=== PATIENT | male | born 1955 | race African-American/Black ===

== ENCOUNTER 2019-12-30 10:17 | Emergency (ER) | payer OTHER ==
--- OUTSIDE RECORDS SUMMARY | 2019-12-30 10:18 | XMS REPORT ---
:1955 [facility] Address [address] [place] [address] Care Team Providers Name Role Phone SEAN BOWERS Primary Care Provider Unavailable SEAN BOWERS Unavailable Unavailable Problems This patient has no known problems. Allergies, Adverse Reactions, Alerts This patient has no known allergies or adverse reactions. Medications This patient has no known medications. Results Test Description Test Time Test Comments Text Results Atomic Results Result Comments Partial Thromboplastin Time 2017-06-06 07:58:00 Test Item Value Reference Range Comments aPTT (test code=PTT) 32.90 seconds 24.39-37.25 Prothrombin [id number] 07:58:00 Test Item Value Reference Range Comments PT (test code=PT) 11.10 seconds 9.78-13.35 INR (test code=INR) 0.97 Ratio 0.6-1.2 Basic Metabolic [id number] 07:53:00 Test Item Value Reference Range Comments Sodium (test code=NA) 138 mmol/L 135-145 Potassium (test code=K) 4.2 mmol/L 3.5-5.1 Hemolyzed Chloride (test code=CL) 98 mmol/L 98-105 Carbon Dioxide (test 25 mmol/L 22-29 code=CO2) Glucose (test code=GLU) 84 mg/dL 70-115 Blood Urea Nitrogen 13 mg/dL 8-23 (test code=BUN) Creatinine (test 1.1 mg/dL 0.7-1.2 code=CREAT) Calcium (test code=CA) 9.8 mg/dL 8.3-10.5 BUN/Creatinine Ratio 11.8 (test code=BCRATIO) Anion Gap (test 15 mmol/L 7-16 code=AGAP) Estimated GFR (test >60 mL/min/1.73m2 eGFR (estimated Glomerular code=GFR) Filtration Rate) is an estimated value,calculated from the patient's serum creatinine using the MDRD equation.It is NOT the patient's actual GFR. The eGFR provides a more clinicallyuseful measure of kidney disease than serum creatinine alone.This calculation takes sex and race into account, if the informationis provided. If the race is not provided, and the patient isAfrican-Citizen Of [place], multiply by 1.212. If sex is not provided, and thepatient is female, multiply by 0.742. Results for patients <18 years ofage have not been validated by the MDRD study and should be interpretedwith caution.eGFR Result Interpretation:eGFR > or=60 is in the Normal RangeeGFR < 60 may mean kidney diseaseeGFR < 15 may mean kidney failureRanges recommended by the National Kidney Foundation,http://nkdep.nih .gov CBC with [id number] 07:45:00 Test Item Value Reference Range Comments WBC (test code=WBC) 4.7 K/cumm 4.4-10.5 RBC (test code=RBC) 4.73 M/cumm 4.10-5.70 Hemoglobin (test code=HGB) 15.6 gm/dL 13.4-17.4 Hematocrit (test code=HCT) 47.9 % 38.7-52.0 MCV (test code=MCV) 101.2 fL 80-100 MCH (test code=MCH) 33.0 pg 27.0-32.5 MCHC (test code=MCHC) 32.6 g/dL 32.0-37.5 RDW (test code=RDW) 14.0 % 11.5-14.5 Platelet Count (test code=PLTCT) 251 K/cumm 140-440 MPV (test code=MPV) 8.8 fL Diff Method (test code=DIFFM) Auto Neutrophil (test code=NEUT) 55.0 % 36-70 Lymphocyte (test code=LYMPH) 31.6 % 12-44 Monocyte (test code=MONO) 7.1 % 0-11 Eosinophil (test code=EOS) 5.9 % 0-7 Basophil (test code=BASO) 0.5 % 0-2 Neutro Abs (test code=ANEUT) 2.6 K/cumm 1.6-7.4 Lymph Abs (test code=ALYMPH) 1.5 K/cumm 0.5-4.6 Glenn Abs (test code=AMONO) 0.3 K/cumm 0.0-1.2 Eos Abs (test code=AEOS) 0.27 K/cumm 0.00-0.74 Baso Abs (test code=ABASO) 0.0 K/cumm 0.00-0.21
--- NOTE | 2019-12-30 11:28 | EDPHYS ---
Physician Documentation [facility] Name: Nelson Coronado Age: 64 yrs Sex: Male : 1955 Arrival Date: 12/30/2019 Time: 10:18 Bed 28 Private MD: Stuart Mason E ED Physician Albert Flores HPI: 12/30 11:24 This 64 yrs old Black Male presents to ER via Ambulatory with complaints of Back Pain. kb 11:24 The patient presents with pain that is acute, with no known mechanism of injury. The kb symptoms are located in the right low back. Onset: The symptoms/episode began/occurred 5 day(s) ago. The pain radiates to the right leg. Associated signs and symptoms: The patient has no apparent associated signs or symptoms. The problem was sustained working on a trailer. Modifying factors: The patient symptoms are alleviated by nothing, the patient symptoms are aggravated by nothing. Severity of symptoms: At their worst the symptoms were moderate, in the emergency department the symptoms are unchanged. The patient has experienced a previous episode. The patient has not recently seen a physician. Pt reports right low back pain that radiates down right leg. States he had the same thing happen to the left side in the past and had to have surgery because of sciatica. Denies injury or trauma. Historical: - Allergies: 10:26 No Known Allergies; ss - PMHx: 10:26 allergies; chronic hip pain; heart disease; High Cholesterol; Hypertension; Myocardial ss infarction; - Immunization history:: Adult Immunizations up to date. - Coronavirus screen:: The patient has NOT traveled to [place], [place], or [place] in the past 14 days. Proceed with normal triage process as indicated. - Social history:: Smoking status: Patient reports the use of cigarette tobacco products, smokes one-half pack cigarettes per day. - Ebola Screening: : Patient denies exposure to infectious person Patient denies travel to an Ebola-affected area in the 21 days before illness onset. ROS: 11:24 Constitutional: Negative for fever, chills, and weight loss, Neck: Negative for injury, kb pain, and swelling, Cardiovascular: Negative for chest pain, palpitations, and edema, Respiratory: Negative for shortness of breath, cough, wheezing, and pleuritic chest pain, Abdomen/GI: Negative for abdominal pain, nausea, vomiting, diarrhea, and constipation, : Negative for injury, bleeding, discharge, and swelling, MS/Extremity: Negative for injury and deformity, Skin: Negative for injury, rash, and discoloration, Neuro: Negative for headache, weakness, numbness, tingling, and seizure. 11:24 Back: Positive for pain at rest, pain with movement, radiated pain, of the right low back. Exam: 11:24 Constitutional: This is a well developed, well nourished patient who is awake, alert, kb and in no acute distress. Head/Face: Normocephalic, atraumatic. ENT: Nares patent. No nasal discharge, no septal abnormalities noted. Tympanic membranes are normal and external auditory canals are clear. Oropharynx with no redness, swelling, or masses, exudates, or evidence of obstruction, uvula midline. Mucous membranes moist. Neck: Trachea midline, no thyromegaly or masses palpated, and no cervical lymphadenopathy. Supple, full range of motion without nuchal rigidity, or vertebral point tenderness. No Meningismus. Chest/axilla: Normal chest wall appearance and motion. Nontender with no deformity. No lesions are appreciated. Cardiovascular: Regular rate and rhythm with a normal S1 and S2. No gallops, murmurs, or rubs. Normal PMI, no JVD. No pulse deficits. Respiratory: Lungs have equal breath sounds bilaterally, clear to auscultation and percussion. No rales, rhonchi or wheezes noted. No increased work of breathing, no retractions or nasal flaring. Abdomen/GI: Soft, non-tender, with normal bowel sounds. No distension or tympany. No guarding or rebound. No evidence of tenderness throughout. Skin: Warm, dry with normal turgor. Normal color with no rashes, no lesions, and no evidence of cellulitis. MS/ Extremity: Pulses equal, no cyanosis. Neurovascular intact. Full, normal range of motion. Neuro: Awake and alert, GCS 15, oriented to person, place, time, and situation. Cranial nerves II-XII grossly intact. Motor strength 5/5 in all extremities. Sensory grossly intact. Cerebellar exam normal. Normal gait. 11:24 Back: pain, that is moderate, Straight leg raises: right lower extremity illicits pain, at 45 degrees. Vital Signs: 10:26 BP 124 / 90; Pulse 91; Resp 18; Temp 99.0(TE); Pulse Ox 99% on R/A; Weight 68.04 kg; ss Height 5 ft. 7 in. (170.18 cm); Pain 10/10; 10:26 Body Mass Index 23.49 (68.04 kg, 170.18 cm) ss MDM: 11:07 Patient medically screened. kb 11:24 Data reviewed: vital signs, nurses notes. Data interpreted: Pulse oximetry: on room air kb is 99 %. Interpretation: normal. 11:27 Counseling: I had a detailed discussion with the patient and/or guardian regarding: the kb historical points, exam findings, and any diagnostic results supporting the discharge/admit diagnosis, the need for outpatient follow up, a family practitioner, to return to the emergency department if symptoms worsen or persist or if there are any questions or concerns that arise at home. Administered Medications: 11:37 Drug: predniSONE 40 mg Route: PO; sv 11:37 Follow up: Response: Medication administered at discharge. sv Disposition: 15:51 Co-signature as Attending Physician, Albert Flores MD. rn Disposition: 12/30/19 11:27 Discharged to Home. Impression: Sciatica, right side. - Condition is Stable. - Discharge Instructions: Sciatica, Ikgp-kb-[id number], Back Exercises, [id number]. - Prescriptions for Prednisone 20 mg Oral Tablet - take 1 tablet by ORAL route once daily for 5 days; 5 tablet. Cyclobenzaprine 10 mg Oral Tablet - take 1 tablet by ORAL route every 8 hours As needed; 21 tablet. - Medication Reconciliation Form, Thank You Letter, Antibiotic Education, Prescription Opioid Use form. - Follow up: Emergency Department; When: As needed; Reason: Worsening of condition. Follow up: Private Physician; When: 2 - 3 days; Reason: Recheck today's complaints, Continuance of care, Re-evaluation by your physician. Signatures: Ammy Ying FNP-C FNP-Ckb Verde, Stephanie, RN RN sv Nieto, Roman, MD MD rn Smirch, Shelby, RN RN ss Corrections: (The following items were deleted from the chart) 11:37 11:27 12/30/2019 11:27 Discharged to Home. Impression: Sciatica, right side. Condition sv is Stable. Forms are Medication Reconciliation Form, Thank You Letter, Antibiotic Education, Prescription Opioid Use. Follow up: Emergency Department; When: As needed; Reason: Worsening of condition. Follow up: Private Physician; When: 2 - 3 days; Reason: Recheck today's complaints, Continuance of care, Re-evaluation by your physician. kb
--- NOTE | 2019-12-30 11:28 | ER ---
Nurse's Notes [facility] Name: Nelson Coronado Age: 64 yrs Sex: Male : 1955 Arrival Date: 12/30/2019 Time: 10:18 Bed 28 Private MD: Stuart Mason E Diagnosis: Sciatica, right side Presentation: 12/30 10:23 Presenting complaint: Patient states: Pain to R buttock that radiates down R leg x 4-5 ss days. Transition of care: patient was not received from another setting of care. Onset of symptoms was December 25, 2019. Risk Assessment: Do you want to hurt yourself or someone else? Patient reports no desire to harm self or others. Initial Sepsis Screen: Does the patient meet any 2 criteria? No. Patient's initial sepsis screen is negative. Does the patient have a suspected source of infection? No. Patient's initial sepsis screen is negative. Care prior to arrival: None. 10:23 Method Of Arrival: Ambulatory ss 10:23 Acuity: DIONNA 4 ss Historical: - Allergies: 10:26 No Known Allergies; ss - PMHx: 10:26 allergies; chronic hip pain; heart disease; High Cholesterol; Hypertension; Myocardial ss infarction; - Immunization history:: Adult Immunizations up to date. - Coronavirus screen:: The patient has NOT traveled to [place], [place], or [place] in the past 14 days. Proceed with normal triage process as indicated. - Social history:: Smoking status: Patient reports the use of cigarette tobacco products, smokes one-half pack cigarettes per day. - Ebola Screening: : Patient denies exposure to infectious person Patient denies travel to an Ebola-affected area in the 21 days before illness onset. Screenin:14 Abuse screen: Denies threats or abuse. Denies injuries from another. Nutritional sv screening: No deficits noted. Tuberculosis screening: No symptoms or risk factors identified. Fall Risk None identified. Assessment: 11:14 General: Appears in no apparent distress. uncomfortable, slender, Behavior is calm, sv cooperative, appropriate for age. Pain: Complains of pain in right lower back Pain radiates to right leg Pain currently is 10 out of 10 on a pain scale. Pain began 5 days ago Is continuous, Aggravated by increased activity, weight bearing. Neuro: Level of Consciousness is awake, alert, obeys commands, Oriented to person, place, time, situation, Moves all extremities. Full function Gait is steady, Speech is normal. Respiratory: Airway is patent Respiratory effort is even, unlabored, Respiratory pattern is regular, symmetrical. Derm: Skin is pink, warm \T\ dry. Musculoskeletal: Range of motion: intact in all extremities. Vital Signs: 10:26 BP 124 / 90; Pulse 91; Resp 18; Temp 99.0(TE); Pulse Ox 99% on R/A; Weight 68.04 kg; ss Height 5 ft. 7 in. (170.18 cm); Pain 10/10; 10:26 Body Mass Index 23.49 (68.04 kg, 170.18 cm) ss ED Course: 10:18 Patient arrived in ED. as 10:19 Stuart Mason MD is Private Physician. as 10:24 Triage completed. ss 10:26 Arm band placed on right wrist. ss 10:38 [facility]C [facility]. kb 10:38 Albert Flores MD is Attending Physician. kb 11:14 Patient has correct armband on for positive identification. Bed in low position. Call sv light in reach. Door closed. Head of bed elevated. 11:18 Alana Carvalho, RN is Primary Nurse. sv Administered Medications: 11:37 Drug: predniSONE 40 mg Route: PO; sv 11:37 Follow up: Response: Medication administered at discharge. sv Outcome: 11:27 Discharge ordered by . kb 11:37 Patient left the ED. sv Signatures: Ammy Ying FNP-C MOISTURE METER READER-Ckb Alana Carvalho, Archana Lomas RN, Shelby, RN RN
[2019-12-30] MEDS ORDERED: predniSONE 20 MG TAB ONE (11:37)
[2019-12-30 16:02] VITALS: BP 124/90; TEMP 99; O2SAT 99
== END 2019-12-30 11:37 | disposition home or self-care (01) ==
LOC: ER 10:17
DX: M54.31 Sciatica, right side (principal)
CPT/HCPCS: 99283; J7512

== ENCOUNTER 2020-12-12 06:45 | Day surgery (SDC) | payer OTHER ==
--- NOTE | 2020-12-08 14:33 | RAD REPORT ---
EXAM DESCRIPTION: RAD - Chest Pa And Lat (2 Views) - 12/08/2020 2:06 pm CLINICAL HISTORY: preop, pending cardiac catheterization COMPARISON: Two view chest October 2019 TECHNIQUE: Frontal and lateral views of the chest were obtained. FINDINGS: The lungs are clear. No acute lung parenchymal process. A small left base nodule October 2019 is probably a nipple shadow. This is not identified on the current study. Heart size is normal and central vasculature is within normal limits. No pleural effusion or pneumothorax seen. No acute bony finding noted. No aortic abnormality. IMPRESSION: No acute cardiopulmonary process. No suspicious change from comparison.
[2020-12-08 14:40] LABS: Absolute Lymphocytes (CBC) 1.8 K/uL (0.7-4.9); Basophils % 1.2 % (0-1.3); Lymphocytes % 29.7 % (15.3-44.8); MPV 8.5 fL (7.6-11.3); RBC Red Blood Cell Count 4.55 M/uL (4.33-5.43)
[2020-12-08 14:57] LABS: Protime INR 1.03
[2020-12-08 15:01] LABS: Potassium 3.6 mmol/L (3.5-5.1)
--- NOTE | 2020-12-08 22:30 | EKG ---
Test Date: 2020-12-08 Test Time: 13:36:03 Residential Interior Designer: KIA MEASUREMENT RESULTS: Intervals: Rate: 63 CA: 134 QRSD: 82 QT: 406 QTc: 415 Antonito: P: 70 CA: 134 QRS: 37 T: 46 INTERPRETIVE STATEMENTS: Normal sinus rhythm with sinus arrhythmia Normal ECG Compared to ECG 11/18/2017 20:15:23 No significant changes Electronically Signed On 12-08-20 22:29:24 HELICOPTER OFFICER by Noe Hernandez
[2020-12-12] MEDS ORDERED: HEPA 1000U/500MLS 2,000 UNIT/1,000 ML BAG IV ONE (06:58)
[2020-12-12] MEDS ORDERED: LIDOCAINE 1% 20 ML MDV ONE (06:58)
[2020-12-12] MEDS ORDERED: NA CHLORIDE 0.9% 500 ML ONE (07:08)
[2020-12-12] MEDS ORDERED: HEPARIN 5000 UNIT/ML 1 ML VIAL ONE (07:31)
[2020-12-12] MEDS ORDERED: MIDAZOLAM HCL 2 MG/2 ML INJ ONE ×2 (07:32→07:57)
[2020-12-12] MEDS ORDERED: FENTANYL CITR 100 MCG/2 ML ONE (07:32)
--- OUTSIDE RECORDS SUMMARY | 2020-12-12 08:07 | XMS REPORT | Continuity of Care Document ---
:1955 Author Organization [facility] t Address [address] [place] [address] Care Team Providers Name Role Phone ROBINSON Primary Care Physician Unavailable ROBINSON Attending Clinician Unavailable ROBINSON Admitting Clinician Unavailable Problems This patient has no known problems. Allergies, Adverse Reactions, Alerts This patient has no known allergies or adverse reactions. Medications This patient has no known medications. Procedures This patient has no known procedures. Results Test Description Test Time Test Comments Results Result Comments Source Partial Thromboplastin Time 2017-06-06 07:58:00 Test Item Value Reference Range Interpretation Comme nts aPTT (test code = PTT) 32.90 seconds 24.39-37.25 N Prothrombin [id number] 07:58:00 Test Item Value Reference Range Interpretation Comments PT (test code = PT) 11.10 seconds 9.78-13.35 N INR (test code = INR) 0.97 Ratio 0.6-1.2 N Basic Metabolic [id number] 07:53:00 Test Item Value Reference Range Interpretation Comments Sodium (test code = 138 mmol/L 135-145 N NA) Potassium (test 4.2 mmol/L 3.5-5.1 N Hemolyzed code = K) Chloride (test code 98 mmol/L 98-105 N = CL) Carbon Dioxide 25 mmol/L 22-29 N (test code = CO2) Glucose (test code 84 mg/dL 70-115 N = GLU) Blood Urea Nitrogen 13 mg/dL 8-23 N (test code = BUN) Creatinine (test 1.1 mg/dL 0.7-1.2 N code = CREAT) Calcium (test code 9.8 mg/dL 8.3-10.5 N = CA) BUN/Creatinine 11.8 Ratio (test code = BCRATIO) Anion Gap (test 15 mmol/L 7-16 N code = AGAP) Estimated GFR (test >60 eGFR (es timated code = GFR) mL/min/1.73m2 Glomerular Paulo tration Rate) is an est imated value,calculate d from the patient's s [place] creatinine usin g the MDRD equation.I t is NOT the patient 's actual GFR. The eGFR provides a more clinicallyusefu l measure of kidn ey disease than se rum creatinine alone.This calculation amy es sex and race into account, if the informationis provided. If th e race is not provided , and the patient isAfrican-Ameri can, multiply by 1.2 12. If sex is not prov ided, and thepatient is female, multipl y by 0.742. Results for patients <18 ye ars ofage have not been validated by th e MDRD study and shoul d be interpretedwith caution.eGFR Re sult Interpretation: eGFR > or = 60 is in t he Normal RangeeGF R < 60 may mean kidney diseaseeGFR < 1 5 may mean kidney failureRange s recommended by the National Kidney Foundation,http ://nkd ep.nih.gov CBC with [id number] 07:45:00 Test Item Value Reference Range Interpretation Comments WBC (test code = WBC) 4.7 K/cumm 4.4-10.5 N RBC (test code = RBC) 4.73 M/cumm 4.10-5.70 N Hemoglobin (test code = HGB) 15.6 gm/dL 13.4-17.4 N Hematocrit (test code = HCT) 47.9 % 38.7-52.0 N MCV (test code = MCV) 101.2 fL 80-100 H MCH (test code = MCH) 33.0 pg 27.0-32.5 H MCHC (test code = MCHC) 32.6 g/dL 32.0-37.5 N RDW (test code = RDW) 14.0 % 11.5-14.5 N Platelet Count (test code = 251 K/cumm 140-440 N PLTCT) MPV (test code = MPV) 8.8 fL Diff Method (test code = DIFFM) Auto Neutrophil (test code = NEUT) 55.0 % 36-70 N Lymphocyte (test code = LYMPH) 31.6 % 12-44 N Monocyte (test code = MONO) 7.1 % 0-11 N Eosinophil (test code = EOS) 5.9 % 0-7 N Basophil (test code = BASO) 0.5 % 0-2 N Neutro Abs (test code = ANEUT) 2.6 K/cumm 1.6-7.4 N Lymph Abs (test code = ALYMPH) 1.5 K/cumm 0.5-4.6 N Dewitt Abs (test code = AMONO) 0.3 K/cumm 0.0-1.2 N Eos Abs (test code = AEOS) 0.27 K/cumm 0.00-0.74 N Baso Abs (test code = ABASO) 0.0 K/cumm 0.00-0.21 N
--- NOTE | 2020-12-12 08:33 | OP ---
Surgeon: Noe Hernandez MD Predictive Maintenance Technician: Lakeshia Shah. Mr. Nelson Coronado admitted to my service as an outpatient to the analytical lab analyst on 12/12/2020. Reason For Admission: An outpatient abdominal angiogram with runoff. Indication: Peripheral arterial disease, claudication and abnormal arterial Doppler. Description Of Procedure: Mr. Coronado was prepped and draped in the routine sterile fashion. He was given Versed and fentanyl for sedation. A 6-Sami sheath was introduced in the left common femoral artery successfully using a Seldinger technique with 10 cc of xylocaine. The pigtail catheter was a dvanced just above the renals without any difficulties. Abdominal angiography was done with runoff t hat showed normal aorta, normal iliacs, external and internal. The common femoral artery was normal. He had 100% occlusion of his bilateral SFA ostium on the left and on the right mid SFA. Both of th em, however, reconstituted at the popliteal with some diffuse plaquing below the knee. Complications: There were no complications. Estimated Blood Loss: 5 mL. Anesthesia: Total conscious sedation was 45 minutes. Postoperative Diagnosis: Severe peripheral arterial disease. Plan: For an outpatient bilateral femoral-popliteal in [place]. I will make arrangements for that. For now, the patient had an Angio- Seal used to close the left groin successfully. He will go home after 2 hours of bedrest. He will h ave a CD with him. ANGEL/ANA Voice ID: [id number] Report ID: [id number]
[2020-12-12 08:44] VITALS: TEMP 97.5
[2020-12-12 10:11] VITALS: BP 127/85; O2SAT 98
== END 2020-12-12 10:07 | disposition home or self-care (01) ==
LOC: CCL 06:45
DX: I70.213 Atherosclerosis of native arteries of extremities with intermittent claudication, bilateral legs (principal); I70.92 Chronic total occlusion of artery of the extremities; I25.10 Atherosclerotic heart disease of native coronary artery without angina pectoris; I10 Essential (primary) hypertension; R09.89 Other specified symptoms and signs involving the circulatory and respiratory systems; E78.2 Mixed hyperlipidemia; F17.210 Nicotine dependence, cigarettes, uncomplicated; Z95.5 Presence of coronary angioplasty implant and graft; Z20.822 Contact with and (suspected) exposure to COVID-19; Z82.49 Family history of ischemic heart disease and other diseases of the circulatory system
CPT/HCPCS: 93005; 85025; 80048; 36415; 85610; 85730; 71046; 36200; 75630; U0002; C1893; C1760; J2250 ×2; J3010; J7040; J1644

== ENCOUNTER 2022-03-22 10:28 | Emergency (ER) | payer OTHER ==
--- OUTSIDE RECORDS SUMMARY | 2022-03-22 10:31 | XMS REPORT | Continuity of Care Document ---
:1955 Author Organization [facility] t Address [address] [place] [place] [address] Care Team Providers Name Role Phone ROBINSON Primary Care Physician Unavailable Ines CAMERON S Attending Clinician Bety PEGUERO L Attending Clinician JULEE Attending Clinician Unavailable ROBINSON Attending Clinician Unavailable JULEE Admitting Clinician Unavailable ROBINSON Admitting Clinician Unavailable Payers Payer Name Policy Type Policy Number Effective Date Expiration Date S ource Problems Condition Condition Condition Status Onset Resolution Last Treating Co mments Source Name Details Category Date Date Treatment Clinician Date No known No known Disease Unive rs active active ity of problems problems [facility] Allergies, Adverse Reactions, Alerts Allergy Allergy Status Severity Reaction(s) Onset Inactive Treating Comm ents Source Name Type Date Date Clinician [place] Active Itching Univer s ty to 3-24 ity of adverse 00:00: [place] reaction 00 Medical s Branch Social History Social Habit Start Date Stop Date Quantity Comments Source Exposure to Not sure [facility] SARS-CoV-2 (event) Medica l Branch Tobacco use and 2021-11-30 2021-11-30 Never used [facility] exposure 00:00:00 00:00:00 Medical Branch Sex [birth year] [facility] 00:00:00 00:00:00 Medical [place] Smoking Status Start Date Stop Date Source Current every day smoker 2021-11-30 00:00:00 Uni versity [facility] Medications Ordered Filled Start Stop Current Ordering Indication Dosage Frequency Signature Comments Components Source Medication Medication Date Date Medication? Clinician (SIG) Name Name METOPROLOL Yes 50mg Take 50 mg U nivers SUCCINATE 1-10 by mouth. ity o f ORAL 15:26: [address] aspirin 81 2021-0 Yes 81mg Take 81 mg U nivers mg chewable 1-10 by mouth. ity of tablet 15:26: [address] celecoxib 2021-0 Yes 200mg Take 200 Uni vers 200 mg 1-10 mg by ity of capsule 15:26: mouth. [address] fluticasone Yes 2{spray Use 2 Un riley propionate 1-10 } Sprays in ity of 50 15:26: each [place] mcg/actuati 03 nostril. Medi sherwin on nasal Branch spray lisinopriL Yes 10mg Take 10 mg U nivers 10 mg 1-10 by mouth. ity of tablet 15:26: [address] nitroglycer Yes .4mg Place 0.4 U nivers in 0.4 mg 1-10 mg under ity of sublingual 15:: the [address] [facility] pravastatin Yes 40mg Take 40 mg Univers 40 mg 1-10 by mouth. ity of tablet 15:26: [address] simvastatin Yes 20mg Take 20 mg Univers 20 mg 1-10 by mouth. ity of tablet 15:26: [address] ticagrelor Yes 90mg Take 90 mg U nivers 90 mg 1-10 by mouth. ity of tablet 15:26: [address] METOPROLOL Yes 50mg Take 50 mg U nivers SUCCINATE 1-10 by mouth. ity o f ORAL 15:26: [address] aspirin 81 0 Yes 81mg Take 81 mg U nivers mg chewable 1-10 by mouth. ity of tablet 15:26: [address] celecoxib 0 Yes 200mg Take 200 Uni vers 200 mg 1-10 mg by ity of capsule 15:26: mouth. [address] fluticasone 0 Yes 2{spray Use 2 Un riley propionate 1-10 } Sprays in ity of 50 15:26: each [place] mcg/actuati 03 nostril. Medi sherwin on nasal Branch spray lisinopriL Yes 10mg Take 10 mg U nivers 10 mg 1-10 by mouth. ity of tablet 15:26: [place] Medical [facility] nitroglycer Yes .4mg Place 0.4 U nivers in 0.4 mg 1-10 mg under ity of sublingual 15:: the [facility] 03 tongue. Medical Branch pravastatin Yes 40mg Take 40 mg Univers 40 mg 1-10 by mouth. ity of tablet 15:: [place] [address] Medical Branch simvastatin Yes 20mg Take 20 mg Univers 20 mg 1-10 by mouth. ity of tablet 15:26: [place] [facility] ticagrelor Yes 90mg Take 90 mg U nivers 90 mg 1-10 by mouth. ity of tablet 15:: [place] [facility] acetaminoph Yes 4647 2{tbl} Take 2 Un riley en-codeine 1-10 tablets by ity of (TYLENOL-CO 00:00: mouth [place] DEINE #3) 00 every 6 Medical 300-30 mg (six) Branch tablet hours as needed for Pain (scale 4-6) or Pain (scale 7-10). Indication s: acute pain acetaminoph Yes 4647 2{tbl} Take 2 Un riley en-codeine 1-10 tablets by ity of (TYLENOL-CO 00:00: mouth [place] DEINE #3) 00 every 6 Medical 300-30 mg (six) Branch tablet hours as needed for Pain (scale 4-6) or Pain (scale 7-10). Indication s: acute pain albuterol 2020-12 Yes Univers 90 1-02 ity of mcg/actuati 00:00: [place] on inhaler 00 Medical Branch gabapentin 2020-12 Yes Univers 300 mg 1-02 ity of capsule 00:00: Medical Branch albuterol 2020-12 Yes Univers 90 1-02 ity of mcg/actuati 00:00: on inhaler Medical Branch gabapentin 2020-12 Yes Univers 300 mg 1-02 ity of capsule 00:00: [place] [facility] Immunizations Ordered Filled Immunization Date Status Comments Sourc e Immunization Name Name SARS-COV-2 COVID-19 2021-10-15 Completed Unive rsity of MODERNA BOOSTER 00:00:00 [facility] ical VACCINE Branch SARS-COV-2 COVID-19 2021-10-15 Completed Unive rsity of MODERNA BOOSTER 00:00:00 [facility] ical VACCINE Branch SARS-COV-2 COVID-19 2021 Completed Unive rsity of MODERNA VACCINE 00:00:00 [facility] SARS-COV-2 COVID-19 2021 Completed Unive rsity of MODERNA VACCINE 00:00:00 [facility] SARS-COV-2 COVID-19 2021-01-07 Completed Unive rsity of MODERNA VACCINE 00:00:00 [facility] SARS-COV-2 COVID-19 2021-01-07 Completed Unive rsity of MODERNA VACCINE 00:00:00 [facility] Vital Signs Vital Name Observation Time Observation Value Comments Source Systolic blood 2022-02-21 16:31:00 168 mm[Hg] Univer sity of [facility] Diastolic blood 2022-02-21 16:31:00 94 mm[Hg] Unive rsity of [facility] Body height 2022-02-21 16:24:00 170.2 cm [facility] Body weight 2022-02-21 16:24:00 66.225 kg [facility] BMI 2022-02-21 16:24:00 22.87 kg/m2 [facility] Oxygen saturation 2022-02-21 16:24:00 99 /min Uni [facility] Arterial blood [facility] by Pulse oximetry Heart rate 2022-02-21 16:24:00 86 /min [facility] Procedures This patient has no known procedures. Encounters Start End Encounter Admission Attending Care Care Encounter Source Date/Time Date/Time Type Type Clinicians Facility Department ID 2022-02-21 2022-02-21 Office Jordin Chacon [facility] [id number] [facility] 11:15:00 11:30:00 Visit AlbertCaipiaobao Enrique [facility] [id number] ittal jean ELMER [id number] Nayan as JONNY?BLEA [id number] Co claudia [address] MEDICAL OFFICE BUILDING 2021-03-27 2021-03-27 [facility] [id number] [place] 00:00:00 00:00:00 [place] 671 Met [facility] 2021-03-13 2021-03-13 [facility] [id number] [place] 00:00:00 00:00:00 [place] 683 Met [facility] 2021-03-06 2021-03-06 [facility] [id number] [place] 00:00:00 00:00:00 [place] 295 Met [facility] 2021-02-20 2021-02-20 [facility] [id number] [place] 00:00:00 00:00:00 [place] 333 Met [facility] Results Test Description Test Time Test Comments Results Result Comments Source Partial Thromboplastin Time 2017-06-06 07:58:00 Test Item Value Reference Range Interpretation Comme nts aPTT (test code = PTT) 32.90 seconds 24.39-37.25 N Prothrombin [id number] 07:58:00 Test Item Value Reference Range Interpretation Comments PT (test code = PT) 11.10 seconds 9.78-13.35 N INR (test code = INR) 0.97 Ratio 0.6-1.2 N Basic Metabolic [id number] 07:53:00 Test Item Value Reference Range Interpretation [...] National [employer] Foundation,http :[email or web address] ep.nih.gov CBC with [id number] 07:45:00 Test Item Value Reference Range Interpretation [...] code = ALYMPH) 1.5 K/cumm 0.5-4.6 N Barron Abs (test code = AMONO) 0.3 K/cumm 0.0-1.2 N Eos Abs (test code = AEOS) 0.27 K/cumm 0.00-0.74 N Baso Abs (test code = ABASO) 0.0 K/cumm 0.00-0.21 N
[2022-03-22] MEDS ORDERED: LEVALBUTEROL 1.25 MG/3 ML NEB ONE (11:03)
[2022-03-22 12:25] LABS: SARS-COV-2 RT PCR NEGATIVE (NEGATIVE)
--- NOTE | 2022-03-22 12:54 | ER ---
Nurse's Notes [facility] Name: Nelson Coronado Age: 67 yrs Sex: Male : 1955 Arrival Date: 03/22/2022 Time: 10:31 Bed 18 Private MD: Stuart Mason E Diagnosis: Wheezing;Acute pharyngitis, unspecified Presentation: 03/22 10:37 Chief complaint: Patient states: cough and congestion in chest since last week, denies iw SOB, no fever. Coronavirus screen: Client presents with at least one sign or symptom that may indicate coronavirus-19. Ebola Screen: Patient negative for fever greater than or equal to 101.5 degrees Fahrenheit, and additional compatible Ebola Virus Disease symptoms Patient denies exposure to infectious person. Patient denies travel to an Ebola-affected area in the 21 days before illness onset. No symptoms or risks identified at this time. Initial Sepsis Screen: Does the patient meet any 2 criteria? No. Patient's initial sepsis screen is negative. Does the patient have a suspected source of infection? No. Patient's initial sepsis screen is negative. Risk Assessment: Do you want to hurt yourself or someone else? Patient reports no desire to harm self or others. Onset of symptoms was March 15, 2022. 10:37 Method Of Arrival: Ambulatory iw 10:37 Acuity: DIONNA 4 iw Historical: - Allergies: 10:38 Tylenol-Codeine; iw - Home Meds: 10:38 benzonatate 100 mg Oral cap 1 cap twice a day [Active]; BRILINTA 90 mg Oral tab 1 tab 2 iw times per day [Active]; clopidogrel 75 mg Oral tab 1 tab once daily [Active]; Flonase 50 mcg/actuation Nasal spsn 1 spray 2 times per day [Active]; Pravachol 40 mg Oral tab 1 tab nightly [Active]; ProAir HFA 90 mcg/actuation inhalation HFAA 1 puff every 4-6 hours [Active]; - PMHx: 10:38 allergies; chronic hip pain; heart disease; High Cholesterol; Hypertension; Myocardial iw infarction; - Immunization history:: Adult Immunizations unknown. - Social history:: Smoking status: unknown. Screenin:44 Abuse screen: Denies threats or abuse. Nutritional screening: No deficits noted. jd3 Tuberculosis screening: No symptoms or risk factors identified. Fall Risk Ambulatory Aid- None/Bed Rest/Nurse Assist (0 pts). Gait- Normal/Bed Rest/Wheelchair (0 pts) Mental Status- Oriented to own ability (0 pts). Total Davis Fall Scale indicates No Risk (0-24 pts). Assessment: 10:40 General: Appears in no apparent distress. comfortable, Behavior is calm, cooperative, jd3 appropriate for age. Pain: Complains of pain in throat Quality of pain is described as aching. Neuro: Level of Consciousness is awake, alert, obeys commands, Oriented to person, place, time, situation. Cardiovascular: Denies chest pain, Capillary refill < 3 seconds Patient's skin is warm and dry. Respiratory: Reports cough that is non-productive, dry, persistent Airway is patent Respiratory effort is even, unlabored, Respiratory pattern is regular, symmetrical, Breath sounds are clear bilaterally. GI: No signs and/or symptoms were reported involving the gastrointestinal system. : No signs and/or symptoms were reported regarding the genitourinary system. EENT: No signs and/or symptoms were reported regarding the EENT system. Derm: Skin is intact, Skin is dry, Skin is normal, Skin temperature is warm. Musculoskeletal: Circulation, motion, and sensation intact. Range of motion: intact in all extremities. 11:42 Reassessment: Patient appears in no apparent distress at this time. No changes from jd3 previously documented assessment. Patient and/or family updated on plan of care and expected duration. Pain level reassessed. Patient is alert, oriented x 3, equal unlabored respirations, skin warm/dry/pink. 12:48 Reassessment: Patient appears in no apparent distress at this time. Patient and/or jd3 family updated on plan of care and expected duration. Pain level reassessed. Patient is alert, oriented x 3, equal unlabored respirations, skin warm/dry/pink. Vital Signs: 10:37 BP 121 / 91; Pulse 87; Resp 16; Temp 98.7; Pulse Ox 98% on R/A; Weight 63.5 kg; Height iw 5 ft. 7 in. (170.18 cm); 12:48 Pulse 86; Resp 16 S; Pulse Ox 98% on R/A; jd3 10:37 Body Mass Index 21.93 (63.50 kg, 170.18 cm) iw ED Course: 10:31 Patient arrived in ED. ds1 10:31 Stuart Mason MD is Private Physician. ds1 10:38 Triage completed. iw 10:39 Chencho Costello PA is PHCP. [facility] 10:39 Pedro Saavedra MD is Attending Physician. jmm 10:39 Arm band placed on. iw 10:42 David Loredo, RN is Primary Nurse. jd3 11:44 Patient has correct armband on for positive identification. Bed in low position. Call j light in reach. Side rails up X 1. Adult w/ patient. Pulse ox on. NIBP on. 12:53 Stuart Mason MD is Referral Physician. [facility] 13:00 No provider procedures requiring assistance completed. Patient did not have IV access jd3 during this emergency room visit. Administered Medications: 11:09 Drug: Xopenex (levalbuterol) (3) 1.25 mg Route: Inhalation; jd3 12:00 Follow up: Response: No adverse reaction j Outcome: 12:53 Discharge ordered by MD. [facility] 13:00 Discharged to home ambulatory, with family. jd3 13:00 Condition: stable 13:00 Discharge instructions given to patient, family, Instructed on discharge instructions, follow up and referral plans. medication usage, Demonstrated understanding of instructions, follow-up care, medications, Prescriptions given X 3. 13:01 Patient left the ED. j Signatures: Chencho Costello PA PA Dinora Guillen ds1 Mariana Hubbard RN RN David Loredo, JESSICA RN jd3 Corrections: (The following items were deleted from the chart) 10:39 10:38 Home Meds: Tylenol-Codeine #4 300-60 mg Oral tab 1 tab every 4 hours; PRN; [facility]
--- NOTE | 2022-03-22 12:54 | EDPHYS ---
Physician Documentation [facility] Name: Nelson Coronado Age: 67 yrs Sex: Male : 1955 Arrival Date: 03/22/2022 Time: 10:31 Bed 18 Private MD: Stuart Mason E ED Physician Pedro Saavedra HPI: 03/22 10:40 This 67 yrs old Black Male presents to ER via Ambulatory with complaints of Cough, jmm Congestion. 10:40 Onset: The symptoms/episode began/occurred acutely, just prior to arrival. Modifying jmm factors: The symptoms are alleviated by nothing, the symptoms are aggravated by nothing. This is a 67 year old male with a history of htn, hlp that presents to the ED with complaints of cough, congestion, wheezing. Denies fever, vomiting. . Historical: - Allergies: 10:38 Tylenol-Codeine; iw - Home Meds: 10:38 benzonatate 100 mg Oral cap 1 cap twice a day [Active]; BRILINTA 90 mg Oral tab 1 tab 2 iw times per day [Active]; clopidogrel 75 mg Oral tab 1 tab once daily [Active]; Flonase 50 mcg/actuation Nasal spsn 1 spray 2 times per day [Active]; Pravachol 40 mg Oral tab 1 tab nightly [Active]; ProAir HFA 90 mcg/actuation inhalation HFAA 1 puff every 4-6 hours [Active]; - PMHx: 10:38 allergies; chronic hip pain; heart disease; High Cholesterol; Hypertension; Myocardial iw infarction; - Immunization history:: Adult Immunizations unknown. - Social history:: Smoking status: unknown. ROS: 10:40 Constitutional: Negative for fever, chills, and weight loss, Cardiovascular: Negative jmm for chest pain, palpitations, and edema. 10:40 Respiratory: Positive for cough, shortness of breath, wheezing. 10:40 Abdomen/GI: Negative for abdominal pain, nausea and vomiting, diarrhea. 10:40 All other systems are negative. Exam: 10:40 Constitutional: This is a well developed, well nourished patient who is awake, alert, jmm and in no acute distress. Head/Face: atraumatic. Eyes: EOMI, no conjunctival erythema appreciated 10:40 Neck: Trachea midline, Supple Chest/axilla: Normal chest wall appearance and motion. Cardiovascular: Regular rate and rhythm. No edema appreciated Respiratory: Normal respirations, no respiratory distress appreciated Abdomen/GI: Non distended, soft Back: Normal ROM Skin: General appearance color normal MS/ Extremity: Moves all extremities, no obvious deformities appreciated, no edema noted to the lower extremities Neuro: Awake and alert Psych: Behavior is normal, Mood is normal, Patient is cooperative and pleasant 10:40 ENT: Posterior pharynx: erythema, that is moderate. Vital Signs: 10:37 BP 121 / 91; Pulse 87; Resp 16; Temp 98.7; Pulse Ox 98% on R/A; Weight 63.5 kg; Height iw 5 ft. 7 in. (170.18 cm); 12:48 Pulse 86; Resp 16 S; Pulse Ox 98% on R/A; jd3 10:37 Body Mass Index 21.93 (63.50 kg, 170.18 cm) iw MDM: 10:40 Patient medically screened. [facility] 12:51 Data reviewed: vital signs, nurses notes. [facility] 12:51 Counseling: I had a detailed discussion with the patient and/or guardian regarding: the [facility] historical points, exam findings, and any diagnostic results supporting the discharge/admit diagnosis, lab results, radiology results, the need for outpatient follow up, to return to the emergency department if symptoms worsen or persist or if there are any questions or concerns that arise at home. ED course: Patient is alert and non toxic in appearance in the ED. No signs of resp distress. patient states feeling much better after nebulizer. Patient advised to follow up with pcp and otherwise given strict return precautions. Patient understood and agrees with the plan of care. . 03/22 10:57 Order name: Strep; Complete Time: 12:02 [facility] 03/22 10:57 Order name: COVID-19/FLU A+B (Document "Date of Onset" if Symptomatic); Complete Time: [facility] 12:46 03/22 12:04 Order name: Throat Culture EDMS Administered Medications: 11:09 Drug: Xopenex (levalbuterol) (3) 1.25 mg Route: Inhalation; jd3 12:00 Follow up: Response: No adverse reaction jd3 Disposition Summary: 03/22/22 12:53 Discharge Ordered Location: Home [facility] Condition: Stable [facility] Diagnosis - Wheezing jmm - Acute pharyngitis, unspecified [facility] Followup: [facility] - With: Stuart Mason MD - When: 2 - 3 days - Reason: Recheck today's complaints, Continuance of care, Re-evaluation by your physician Discharge Instructions: - Discharge Summary Sheet [facility] - Pharyngitis [facility] Forms: - Medication Reconciliation Form [facility] - Thank You Letter [facility] - Antibiotic Education [facility] - Prescription Opioid Use [facility] Prescriptions: - Albuterol Sulfate 2.5 mg /3 mL (0.083 %) Inhalation Solution for Nebulization - inhale 1 unit by NEBULIZATION route every 8 hours As needed; 1 box; Refills: 0, [facility] Product Selection Permitted - Zithromax Z-Jaden 250 mg Oral Tablet - take 1 tablet by ORAL route as directed for 5 days Day 1 - take two (2) tablets jmm one time. Day 2, 3, 4 , 5 take one (1) tablet once daily.; 6 tablet; Refills: 0, Product Selection Permitted - Medrol (Jaden) 4 mg Oral Tablets, Dose Pack - take 1 tablet by ORAL route as directed - follow package instructions; 1 [facility] packet; Refills: 0, Product Selection Permitted Signatures: Dispatcher [employer] Pedro Hensley MD MD cha Mickail, Joel, PA PA jmm Williams, Irene, RN RN iw Davies, Jonathon, RN RN jd3 Corrections: (The following items were deleted from the chart) 10:39 10:38 Home Meds: Tylenol-Codeine #4 300-60 mg Oral tab 1 tab every 4 hours; PRN; kermit carmen
[2022-03-22 13:20] VITALS: BP 121/91; TEMP 98.7; O2SAT 98
== END 2022-03-22 13:01 | disposition home or self-care (01) ==
LOC: ER 10:28
DX: R06.2 Wheezing (principal); J02.9 Acute pharyngitis, unspecified; R05.9 Cough, unspecified; E78.00 Pure hypercholesterolemia, unspecified; I10 Essential (primary) hypertension; I25.2 Old myocardial infarction; I51.9 Heart disease, unspecified; Z20.822 Contact with and (suspected) exposure to COVID-19; Z88.5 Allergy status to narcotic agent
CPT/HCPCS: 87070; 87081; 0240U; 99284

== ENCOUNTER 2023-10-01 06:15 | Day surgery (SDC) | payer OTHER ==
[2023-09-25 11:50] LABS: Absolute Lymphocytes (CBC) 1.2 K/uL (0.7-4.9); Hematocrit 40.8 % (39.6-49.0); Lymphocytes % 27.6 % (15.3-44.8); MCV 103.8 fL (80-100); MPV 8.9 fL (7.6-11.3); Platelets 217 thou/uL (152-406); RBC Red Blood Cell Count 3.93 M/uL (4.33-5.43)
[2023-09-25 11:57] LABS: Protime INR 1.01
--- NOTE | 2023-09-25 12:03 | RAD REPORT ---
EXAM DESCRIPTION: RAD - Chest Pa And Lat (2 Views) - 09/25/2023 11:49 am CLINICAL HISTORY: Pre op pending heart cath Chest pain. COMPARISON: Chest Pa And Lat (2 Views) dated 12/08/2020; Chest Pa And Lat (2 Views) dated 11/11/2019; Chest Single View dated 11/18/2017; CHEST PA AND LAT 2 VIEW dated 04/10/2015 TECHNIQUE: PA and lateral views of the chest were obtained. FINDINGS: The lungs are hyperexpanded compatible with COPD. The heart is upper limit of normal in si ze. No fracture or aggressive bony process. IMPRESSION: COPD without acute process identified. The USPSTF recommends annual screening for lung cancer with low-dose CT (LDCT) in adults aged 50 to 8 0 years who have a 20 pack-year smoking history and currently smoke or have quit within the past 15 y ears.
[2023-09-25 12:04] LABS: Potassium 3.7 mEq/L (3.5-5.1)
--- NOTE | 2023-09-26 15:47 | EKG ---
Test Date: 2023-09-25 Test Time: 11:25:52 Private Equity Analyst: LILIAN MEASUREMENT RESULTS: Intervals: Rate: 89 UT: 120 QRSD: 76 QT: 372 QTc: 452 [place]: P: 63 UT: 120 QRS: 41 T: 48 INTERPRETIVE STATEMENTS: Sinus rhythm with marked sinus arrhythmia with frequent premature ventricular complexes Possible Left atrial enlargement Nonspecific T wave abnormality Abnormal ECG Compared to ECG 12/08/2020 13:36:03 Ventricular premature complex(es) now present T-wave abnormality now present Electronically Signed On 09-26-23 15:43:17 CDT by Gerald Hunt
[2023-10-01] MEDS ORDERED: LIDOCAINE 1% 20 ML MDV ONE (06:42)
[2023-10-01] MEDS ORDERED: HEPA 1000U/500MLS 2,000 UNIT/1,000 ML BAG IV ONE (06:42)
[2023-10-01] MEDS ORDERED: MIDAZOLAM HCL 2 MG/2 ML INJ ONE (06:42)
[2023-10-01] MEDS ORDERED: FENTANYL CITR 100 MCG/2 ML ONE (06:42)
[2023-10-01] MEDS ORDERED: VERAPAMIL HCL 10 MG/4 ML VIAL IV ONE (06:43)
[2023-10-01] MEDS ORDERED: HEPARIN 10,000 UNIT/10 ML VIAL IV ONE (06:43)
[2023-10-01] MEDS ORDERED: HEPARIN 5000 UNIT/ML 1 ML VIAL ONE (06:43)
[2023-10-01] MEDS ORDERED: ASPIRIN 325 MG TAB ONE (06:43)
[2023-10-01] MEDS ORDERED: CLOPIDOGREL 75 MG TABLET ONE (06:43)
[2023-10-01] MEDS ORDERED: ATROPINE SULF 1 MG/10 ML SYR IV ONE (06:44)
[2023-10-01] MEDS ORDERED: TICAGRELOR 90 MG TABLET PO ONE (06:44)
[2023-10-01] MEDS ORDERED: NA CHLORIDE 0.9% 500 ML ONE (06:53)
[2023-10-01] MEDS ORDERED: NITROGLYCERIN/D5W 50 MG/250 ML BTL IV ONE (07:16)
[2023-10-01] MEDS ORDERED: FAMOTIDINE 20 MG TAB ONE (08:25)
[2023-10-01 09:13] VITALS: TEMP 98
[2023-10-01 14:11] VITALS: O2SAT 99
[2023-10-01 14:16] VITALS: BP 155/78
--- NOTE | 2023-10-02 19:05 | OP ---
Date of Procedure: 10/01/2023 Surgeon: HANNA BARR Procedures Performed: 1.Selective coronary angiogram. 2.Left heart catheterization. 3.Percutaneous coronary intervention of severe proximal left circumflex 99% stenosis, used 3.0 x 16 mm drug-eluting stent. Indication: Unstable angina. Access: Right radial artery 6-Kazakh closed with TR band. Complications: None. Bleeding: Less than 20 mL. Anesthesia: Total sedation time was 1 hour. Description Of Procedure: After risks, benefits, and alternatives were explained, patient agreed to procedure and signed informed consent. Patient was brought into the cardiac catheterization laborato ry, prepped and draped in usual sterile fashion, Then, I accessed the right radial artery using pedia tric micropuncture kit, placed 6-Kazakh slender sheath and took 5-Kazakh [place] 4.0 catheter into the aortic root, engaged left main and took standard views and then the RCA and took standard views and c atheter was pushed over the wire into the LV, measured the LVEDP. Pullback did not record any gradie nt and gave systemic heparin to assure ACT level above 250 and then took a 6-Kazakh XB 3.5 guide into the aortic root, engaged left main and then loaded with 600 mg of Plavix and 325 mg of aspirin. We took short Runthrough wire into the left circumflex, placed distally and then the lesion was pre-dila olimpia using a 3.0 x 12 mm balloon and then placed 3.0 x 60 mm Synergy drug-eluting stent with excellent expansion and no residual stenosis and wire was removed. Final angiogram was satisfactory and remov ed the guide and sheath, placed TR band with good hemostasis. Findings: 1.Left main: Large and normal. 2.LAD: Proximal segment is normal. Mid segment is 80% focal stenosis before the stent and the sten t has 60% in-stent restenosis. Then, the LAD becomes normal, diagonal branches are normal. 3.Left circumflex: Proximal 99%, status post successful PCI as above and the OM1 branch has a stent that is patent, but there is 50% stenosis proximal to the stent. The rest of the circumflex and the OM appears normal. 4.RCA has dominant circulation with mid diffuse 50% stenosis. 5.Normal LVEDP at 7 mmHg. Conclusions: 1.Severe proximal left circumflex stenosis, status post successful PCI as above. 2.Severe mid LAD stenosis. We will do a staged PCI in 1 month. 3.Moderate coronary artery disease elsewhere. Plan: Continue aspirin, Plavix, and statin post PCI today and plan for staged PCI of the mid LAD will nosis in 1 month. SR/MODL Voice ID: [id number] Report ID: [id number]
== END 2023-10-01 11:35 | disposition home or self-care (01) ==
LOC: CCL 06:15
PROVIDERS: ATTEND Internal Medicine
DX: I25.110 Atherosclerotic heart disease of native coronary artery with unstable angina pectoris (principal); T82.855A Stenosis of coronary artery stent, initial encounter; I70.203 Unspecified atherosclerosis of native arteries of extremities, bilateral legs; I10 Essential (primary) hypertension; E78.2 Mixed hyperlipidemia; F17.210 Nicotine dependence, cigarettes, uncomplicated; Z79.899 Other long term (current) drug therapy; Z82.49 Family history of ischemic heart disease and other diseases of the circulatory system
CPT/HCPCS: 93005; 85025; 80048; 36415; 85610; 85730; 71046; 93458; 76937; C1893; C1760; Q9967; G0269; C1725; C9600; J1644; J2001; J2250; J3010; J7040; J0461

== ENCOUNTER → 2023-11-25 | Emergency (ER) | payer OTHER ==
--- NOTE | 2023-11-25 12:32 | RAD REPORT ---
EXAM DESCRIPTION: RAD - Chest Pa And Lat (2 Views) - 11/25/2023 11:56 am CLINICAL HISTORY: COUGH COMPARISON: Chest Pa And Lat (2 Views) dated 09/25/2023; Chest Pa And Lat (2 Views) dated 12/08/2020; Chest Pa And Lat (2 Views) dated 11/11/2019; Chest Single View dated 11/18/2017 TECHNIQUE: PA and lateral views of the chest were obtained. FINDINGS: The lungs are clear. Heart size is normal and central vasculature is within normal limits. No pleural effusion or pneumothorax seen. No acute bony finding noted. IMPRESSION: No acute cardiopulmonary process.
--- NOTE | 2023-11-25 12:50 | EDPHYS ---
Physician Documentation [facility] Name: Nelson Coronado Age: 68 yrs Sex: Male : 1955 Arrival Date: 11/25/2023 Time: 11:18 Bed 10 Private MD: ED Physician Albert Flores HPI: 11/25 11:38 This 68 yrs old Black Male presents to ER via Ambulatory with complaints of Congestion. rn 11:38 The patient or guardian reports cough. Onset: The symptoms/episode began/occurred 2 rn week(s) ago. Severity of symptoms: At their worst the symptoms were mild, in the emergency department the symptoms are unchanged. Modifying factors: The symptoms are alleviated by nothing, the symptoms are aggravated by nothing. Associated signs and symptoms: Pertinent positives: rhinorrhea, Pertinent negatives: chest pain, fever. The patient has experienced similar episodes in the past. The patient has not recently seen a physician. Patient reports cough and congestion for 3 weeks now. Has been taking home COVID tests and were negative. No fever. No shortness of breath. No chest pain. Reports persistent cough with mucus. Is an active smoker. No other complaints.. Historical: - Allergies: 11:20 Tylenol-Codeine; ll1 - PMHx: 11:20 chronic hip pain; High Cholesterol; heart disease; allergies; Hypertension; Myocardial ll1 infarction; - Immunization history:: Adult Immunizations up to date. - Social history:: Smoking status: Patient reports the use of cigarette tobacco products, smokes one-half pack cigarettes per day. - Family history:: not pertinent. - Hospitalizations: : No recent hospitalization is reported. ROS: 11:38 Constitutional: Negative for fever, chills, and weight loss, ENT: Positive for rn congestion Cardiovascular: Negative for chest pain, palpitations, and edema, Respiratory: Positive for productive cough, negative for shortness of breath Abdomen/GI: Negative for abdominal pain, nausea, vomiting, diarrhea, and constipation, MS/Extremity: Negative for injury and deformity, Skin: Negative for injury, rash, and discoloration, Neuro: Negative for headache, weakness, numbness, tingling, and seizure, Exam: 11:38 Constitutional: This is a well developed, well nourished patient who is awake, alert, rn and in no acute distress. Head/Face: Normocephalic, atraumatic. Eyes: Pupils equal round and reactive to light, extra-ocular motions intact. ENT: Moist mucous membranes, no stridor Neck: Trachea midline, no masses palpated, and no cervical lymphadenopathy. Supple, full range of motion without nuchal rigidity, or vertebral point tenderness. No Meningismus. Cardiovascular: Regular rate and rhythm. No pulse deficits. Respiratory: Speaking full sentences, unlabored. No increased work of breathing, no retractions or nasal flaring. Neuro: Awake and alert, GCS 15 Vital Signs: 11:32 BP 161 / 97; Pulse 93; Resp 18; Temp 99; Pulse Ox 96% ; Weight 67.13 kg; Height 5 ft. 7 ll1 in. ; Pain 0/10; 13:26 BP 154 / 78; Pulse 87; Resp 18; Temp 97.9; Pulse Ox 99% on R/A; ph 11:32 Body Mass Index 23.18 (67.13 kg, 170.18 cm) ll1 11:32 Pain Scale: Adult ll1 MDM: 11:20 Patient medically screened. rn 12:48 Differential Diagnosis: Influenza Upper Respiratory Infection Viral Syndrome Pneumonia. rn Data reviewed: vital signs, nurses notes, lab test result(s), radiologic studies, plain films, and as a result, I will discharge patient. Counseling: I had a detailed discussion with the patient and/or guardian regarding the historical points, exam findings, and any diagnostic results supporting the discharge/admit diagnosis, lab results, radiology results, the need for outpatient follow up, to return to the emergency department if symptoms worsen or persist or if there are any questions or concerns that arise at home. Special discussion: I discussed with the patient/guardian in detail that at this point there is no indication for admission to the hospital. It is understood, however, that if the symptoms persist or worsen the patient needs to return immediately for re-evaluation. 11/25 11:21 Order name: Flu; Complete Time: 12:32 rn 11/25 11:36 Order name: XRAY Chest Pa And Lat (2 Views); Complete Time: 12:37 ll1 Administered Medications: No medications were administered Disposition Summary: 11/25/23 12:49 Discharge Ordered Notes: Location: Home rn Problem: an ongoing problem rn Symptoms: are unchanged rn Condition: Stable rn Diagnosis - Cough rn Followup: rn - With: Private Physician - When: As needed - Reason: Recheck today's complaints, Re-evaluation by your physician Discharge Instructions: - Discharge Summary Sheet rn - Cough, Adult rn Forms: - Medication Reconciliation Form rn - Thank You Letter rn - Antibiotic apparel patternmaker - Prescription Opioid Use rn - Patient Portal Instructions rn - Leadership Thank You Letter rn Prescriptions: - Zithromax Z-Jaden 250 mg Oral Tablet - take 1 tablet ORAL route as directed for 5 days Day 1 - take two (2) tablets rn one time. Day 2, 3, 4 , 5 take one (1) tablet once daily.; 6 tablet; Refills: 0, Product Selection Permitted Signatures: Dispatcher [employer] EDMS Albert Flores MD MD rn Lewis, Lynsay, RN RN ll1 Corrections: (The following items were deleted from the chart) 11:44 11:21 SARS-COV-2 Antigen Rapid+I.LAB.BRZ ordered. EDNV EDMS
--- NOTE | 2023-11-25 12:50 | ER ---
Nurse's Notes [facility] Name: Nelson Coronado Age: 68 yrs Sex: Male : 1955 Arrival Date: 11/25/2023 Time: 11:18 Bed 10 Private MD: Diagnosis: Cough Presentation: 11/25 11:32 Chief complaint: Patient states: Cough and congestion for 3 weeks. No known fever. ll1 Coronavirus screen: Client denies travel out of the [place] in the last 14 days. congestion, cough unrelated to allergies. Ebola Screen: Patient denies travel to an Ebola-affected area in the 21 days before illness onset. Resp Distress? No respiratory distress is noted at this time. Initial Sepsis Screen: Does the patient meet any 2 criteria? No. Patient's initial sepsis screen is negative. Does the patient have a suspected source of infection? Yes: Productive cough/pneumonia. Risk Assessment: Do you want to hurt yourself or someone else? Patient reports no desire to harm self or others. Onset of symptoms was November 04, 2023. 11:32 Method Of Arrival: Ambulatory 1 11:32 Acuity: DIONNA 4 ll1 Historical: - Allergies: 11:20 Tylenol-Codeine; ll1 - PMHx: 11:20 chronic hip pain; High Cholesterol; heart disease; allergies; Hypertension; Myocardial ll1 infarction; - Immunization history:: Adult Immunizations up to date. - Social history:: Smoking status: Patient reports the use of cigarette tobacco products, smokes one-half pack cigarettes per day. - Family history:: not pertinent. - Hospitalizations: : No recent hospitalization is reported. Screenin:27 [facility] ED Fall Risk Assessment (Adult) History of falling in the last 3 months, ph including since admission No falls in past 3 months (0 pts) Score/Fall Risk Level 0 - 2 = Low Risk Oriented to surroundings, Maintained a safe environment, Hourly rounding (assess needs \T\ fall precautionary measures) done, Used ambulatory aids as needed (educated on \T\ assisted with). Abuse screen: Denies threats or abuse. Denies injuries from another. Nutritional screening: No deficits noted. Tuberculosis screening: No symptoms or risk factors identified. Assessment: 13:28 General: Appears in no apparent distress. comfortable, well groomed, Behavior is calm, ph cooperative, appropriate for age. Pain: Denies pain. Neuro: Level of Consciousness is awake, alert, obeys commands, Oriented to person, place, time, situation. Cardiovascular: Denies chest pain, Capillary refill < 3 seconds in bilateral fingers Patient's skin is warm and dry. Respiratory: Reports cough that is Airway is patent Respiratory effort is even, unlabored, Breath sounds are clear bilaterally. Vital Signs: 11:32 BP 161 / 97; Pulse 93; Resp 18; Temp 99; Pulse Ox 96% ; Weight 67.13 kg; Height 5 ft. 7 ll1 in. ; Pain 0/10; 13:26 BP 154 / 78; Pulse 87; Resp 18; Temp 97.9; Pulse Ox 99% on R/A; ph 11:32 Body Mass Index 23.18 (67.13 kg, 170.18 cm) ll1 11:32 Pain Scale: Adult ll1 ED Course: 11:19 Patient arrived in ED. rg4 11:20 Albert Flores MD is Attending Physician. rn 11:20 Arm band placed on. ll1 11:33 Triage completed. ll1 11:38 Flu Sent. iw 11:57 XRAY Chest Pa And Lat (2 Views) In Process Unspecified. EDMS 12:46 Amelia Verma RN is Primary Nurse. ph 13:27 Patient has correct armband on for positive identification. Call light in reach. Side ph rails up X 1. 13:27 No provider procedures requiring assistance completed. Patient did not have IV access ph during this emergency room visit. Administered Medications: No medications were administered Medication: 13:27 VIS not applicable for this client. ph Outcome: 12:49 Discharge ordered by . rn 13:27 Discharged to home ambulatory, with significant other, ph 13:27 Condition: good 13:27 Discharge instructions given to patient, significant other, Instructed on discharge instructions, follow up and referral plans. medication usage, Demonstrated understanding of instructions, follow-up care, medications, Prescriptions given X 1, 13:28 Patient left the ED. ph Signatures: Dispatcher [employer] EDMS Mariana Hubbard RN RN iw Albert Flores MD MD rn Hall, Patricia, RN RN ph Garcia, Rubi rg4 Ady Portillo RN RN 1
[2023-11-25 14:33] VITALS: BP 154/78; TEMP 97.9; O2SAT 99
== END ==
LOC: ER 11:18
DX: R05.9 Cough, unspecified (principal); I10 Essential (primary) hypertension; I25.2 Old myocardial infarction; F17.210 Nicotine dependence, cigarettes, uncomplicated; Z88.5 Allergy status to narcotic agent
CPT/HCPCS: 71046; 87804; 99283

== ENCOUNTER 2024-03-08 11:19 | Day surgery (SDC) | payer OTHER ==
[2024-03-04 10:20] LABS: Absolute Basophils 0.1 K/uL (0-0.5); Absolute Eosinophils 0.5 K/uL (0-0.5); Absolute Lymphocytes (CBC) 1.1 K/uL (0.7-4.9); Absolute Monocytes 0.5 K/uL (0.1-1.3); Absolute Neutrophil 2.6 K/uL (1.8-8.0); Basophils % 1.4 % (0-1.3); Eosinophils % 9.9 % (0-4.4); Hematocrit 40.9 % (39.6-49.0); Hemoglobin 13.6 g/dL (13.6-17.9); Lymphocytes % 22.8 % (15.3-44.8); MCH 34.1 pg (27.0-35.0); MCHC 33.3 g/dL (32.0-36.0); MCV 102.3 fL (80-100); Monocytes % 10.4 % (3.3-12.3); Neutrophils % 55.5 % (41.7-73.7); Platelets 192 thou/uL (152-406); Red Cell Distribution Width 13.2 % (12.1-15.2)
[2024-03-04 10:26] LABS: PTT, Activated Partial Thromb 29.1 SECONDS (24.3-36.9)
[2024-03-04 10:33] LABS: Anion Gap 5.5 mEq/L (5.0-15.0); Potassium 3.5 mEq/L (3.5-5.1)
--- NOTE | 2024-03-04 15:40 | EKG ---
Test Date: 2024-03-04 Test Time: 09:54:19 Car Servicer: CULLEN MEASUREMENT RESULTS: Intervals: Rate: 74 IL: 130 QRSD: 78 QT: 404 QTc: 448 Beauty: P: 71 IL: 130 QRS: 50 T: 46 INTERPRETIVE STATEMENTS: Normal sinus rhythm Normal ECG Compared to ECG 09/25/2023 11:25:52 Sinus arrhythmia no longer present Ventricular premature complex(es) no longer present T-wave abnormality no longer present Electronically Signed On 03-04-24 15:39:10 CDT by Gerald Hunt
[2024-03-08] MEDS ORDERED: NA CHLORIDE 0.9% 500 ML ONE (11:22)
[2024-03-08] MEDS ORDERED: HEPA 1000U/500MLS 2,000 UNIT/1,000 ML BAG IV ONE (11:24)
[2024-03-08] MEDS ORDERED: LIDOCAINE 1% 20 ML MDV ONE (11:24)
[2024-03-08] MEDS ORDERED: FENTANYL CITR 100 MCG/2 ML ONE (11:29)
[2024-03-08] MEDS ORDERED: VERAPAMIL HCL 10 MG/4 ML VIAL IV ONE (11:29)
[2024-03-08] MEDS ORDERED: ATROPINE SULF 1 MG/10 ML SYR IV ONE (11:30)
[2024-03-08] MEDS ORDERED: MIDAZOLAM HCL 2 MG/2 ML INJ ONE (11:30)
[2024-03-08] MEDS ORDERED: HEPARIN 10,000 UNIT/10 ML VIAL IV ONE (11:30)
[2024-03-08] MEDS ORDERED: HEPARIN 5000 UNIT/ML 1 ML VIAL ONE (11:30)
[2024-03-08 11:53] VITALS: TEMP 97.8
[2024-03-08 14:29] VITALS: BP 157/97; O2SAT 99
--- NOTE | 2024-03-08 22:15 | OP ---
Date of Procedure: 03/08/2024 Surgeon: HANNA BARR Procedures Performed: Distal aortogram with runoff and peripheral angiogram. Indication: Peripheral vascular disease. Access: Right radial artery 6-Georgian, closed with TR band. Complications: None. Bleeding: Less than 50 mL. Anesthesia: Total sedation time was 30 minutes. Description Of Procedure: After risks, benefits, and alternatives were explained, the patient agreed to procedure and signed informed consent. The patient was brought into cardiac catheterization [facility], prepped and draped in usual sterile fashion. Then, I accessed right radial artery using pedi atric micropuncture kit, placed a 6-Georgian Slender sheath, and took a long 4-Georgian pigtail catheter into the distal aorta, performed distal aortogram and runoff. Then, I removed the catheter and the s ksenia, placed TR band with good hemostasis. Findings: 1.Distal aorta is widely patent. 2.Right lower extremity: The right common iliac, external iliac, internal iliac, and common femoral widely patent and the right profunda is patent, but the right SFA is also fully occluded all the way . There is a distal stent in the SFA. Reconstitution happens distally to the stent and there was a 3-vessel runoff below the knee with moderate diffuse disease. 3.Left lower extremity: The left common iliac, external iliac, common femoral, internal iliac, and profunda are all widely patent, but the SFA on the left, there is a stent at the beginning of the art jessica and it is totally occluded and there is another stent distally. It is totally occluded and recon stitution happens in the mid of the distal stent and then the popliteal appears normal and the anteri or tibial is occluded. The posterior tibial and peroneal are patent with mild diffuse stenosis. Conclusion: Severe bilateral SFA stenosis as above. Plan: Attempt MOTTLER OPERATOR intervention on the left lower extremity at [place] and then the right lower ex tremity at the later time. SR/MODL Voice ID: [id number] Report ID: [id number]
== END 2024-03-08 14:28 | disposition home or self-care (01) ==
LOC: CCL 11:19
PROVIDERS: ATTEND Internal Medicine
DX: I70.213 Atherosclerosis of native arteries of extremities with intermittent claudication, bilateral legs (principal); T82.856A Stenosis of peripheral vascular stent, initial encounter; I70.92 Chronic total occlusion of artery of the extremities; I25.10 Atherosclerotic heart disease of native coronary artery without angina pectoris; I10 Essential (primary) hypertension; E78.2 Mixed hyperlipidemia; F17.210 Nicotine dependence, cigarettes, uncomplicated; Z79.82 Long term (current) use of aspirin; Z79.02 Long term (current) use of antithrombotics/antiplatelets; Z79.899 Other long term (current) drug therapy; Z95.5 Presence of coronary angioplasty implant and graft; Z82.49 Family history of ischemic heart disease and other diseases of the circulatory system
CPT/HCPCS: 93005; 85025; 80048; 36415; 83721; 85610; 85730; 36200; 75630; 76937; C1893; J1644; J2001; J2250; J3010; J7040; 99152; 99153; J0461

== ENCOUNTER 2025-01-19 10:36 | Emergency (ER) | payer OTHER ==
--- NOTE | 2025-01-19 11:58 | RAD REPORT ---
EXAMINATION: Ribs Left CLINICAL INDICATION: Male, 69 years old. fall;Pain COMPARISON: 11/25/2023 VIEWS: Four views FINDINGS: No displaced left-sided rib fractures identified. No pneumothorax. Coronary stent noted. IMPRESSION: No displaced left-sided rib fractures or pneumothorax identified. Nondisplaced rib fractures may not be apparent radiographically.
--- NOTE | 2025-01-19 12:43 | ER ---
Nurse's Notes [facility] Name: Nelson Coronado Age: 69 yrs Sex: Male : 1955 Arrival Date: 01/19/2025 Time: 10:36 Bed 10 Private MD: Diagnosis: Left-sided rib contusion Presentation: 01/19 10:45 Chief complaint: Patient states: Tripped Friday. L sided rib cage pains since. ll1 Coronavirus screen: Client denies travel out of the [place] in the last 14 days. congestion, cough unrelated to allergies. Ebola Screen: Patient denies travel to an Ebola-affected area in the 21 days before illness onset. Initial Sepsis Screen: Does the patient meet any 2 criteria? No. Patient's initial sepsis screen is negative. Does the patient have a suspected source of infection? No. Patient's initial sepsis screen is negative. Risk Assessment: Do you want to hurt yourself or someone else? Patient reports no desire to harm self or others. Onset of symptoms was January 16, 2025. 10:45 Method Of Arrival: Ambulatory ll1 10:45 Acuity: DIONNA 3 ll1 Triage Assessment: 10:45 General: Appears uncomfortable, Behavior is calm, cooperative, appropriate for age. ll1 Pain: Complains of pain in L trunk Quality of pain is described as aching. Musculoskeletal: Reports pain in L ribs/trunk. Injury Description: Bruise. Historical: - Allergies: 10:45 Tylenol-Codeine; ll1 - PMHx: 10:45 allergies; High Cholesterol; heart disease; Hypertension; chronic hip pain; Myocardial ll1 infarction; - Immunization history:: Adult Immunizations up to date. - Social history:: Smoking status: Patient reports the use of cigarette tobacco products, smokes one-half pack cigarettes per day. Screenin:06 [facility] ED Fall Risk Assessment (Adult) History of falling in the last 3 months, jb4 including since admission Yes- single mechanical fall (1 pt) Confusion or Disorientation No (0 pts) Intoxicated or Sedated No (0 pts) Impaired Gait No (0 pts) Mobility Assist Device Used Yes (1 pt) Altered Elimination No (0 pt) Score/Fall Risk Level 0 - 2 = Low Risk Oriented to surroundings, Maintained a safe environment. Abuse screen: Denies threats or abuse. Nutritional screening: No deficits noted. Tuberculosis screening: No symptoms or risk factors identified. Assessment: 12:25 Reassessment: Patient appears in no apparent distress at this time. Patient and/or jb4 family updated on plan of care and expected duration. Pain level reassessed. Patient is alert, oriented x 3, equal unlabored respirations, skin warm/dry/pink. Pt continues to report pain, requesting pain medication, ER physician notified. 13:06 Reassessment: Patient appears in no apparent distress at this time. Patient and/or jb4 family updated on plan of care and expected duration. Pain level reassessed. Patient is alert, oriented x 3, equal unlabored respirations, skin warm/dry/pink. Vital Signs: 10:45 BP 162 / 84; Pulse 81; Resp 18; Temp 97.6; Pulse Ox 100% ; Weight 70.31 kg; Height 5 ll1 ft. 7 in. ; Pain 10/10; 10:45 Body Mass Index 24.28 (70.31 kg, 170.18 cm) ll1 10:45 Pain Scale: Adult ll1 ED Course: 10:38 Patient arrived in ED. im 10:42 Mayur Lemus MD is Attending Physician. sp3 10:45 Arm band placed on Patient notified of wait time. ll1 10:52 Triage completed. ll1 11:41 Ribs Left XRAY In Process Unspecified. EDMS 11:48 Mariana Hubbard, RN is Primary Nurse. iw 13:06 Patient has correct armband on for positive identification. Bed in low position. Call jb4 light in reach. Side rails up X 1. Provided Education on: discharge instructions.. 13:06 No provider procedures requiring assistance completed. Patient did not have IV access jb4 during this emergency room visit. Administered Medications: 12:53 Drug: HYDROcodone-acetaminophen PO 5 mg-325 mg 2 tabs PO once {Note: Pt denies allergy jb4 to hydrocodone. States " I can take it just fine.".} Route: PO; 13:08 Follow up: Response: Medication administered at discharge. jb4 Medication: 13:06 VIS not applicable for this client. jb4 Outcome: 12:43 Discharge ordered by . sp3 13:06 Discharged to home ambulatory, with family, jb4 13:06 Condition: stable 13:06 Discharge instructions given to patient, Instructed on discharge instructions, follow up and referral plans. no drinking with medication, no driving heavy equipment, medication usage, Demonstrated understanding of instructions, follow-up care, medications, Prescriptions given X 1, 13:09 Patient left the ED. jb4 Signatures: Dispatcher [employer] EDMS Mariana Hubbard RN RN iw Bryson, James, RN RN jb4 Ady Portillo RN RN ll1 Mayur Lemus MD MD 3 Mayela Bergeron Corrections: (The following items were deleted from the chart) 12:27 12:25 Reassessment: Patient appears in no apparent distress at this time. Patient jb4 and/or family updated on plan of care and expected duration. Pain level reassessed. Patient is alert, oriented x 3, equal unlabored respirations, skin warm/dry/pink. jb4 13:09 12:53 HYDROcodone-acetaminophen PO 5 mg-325 mg 2 tabs PO jb4 jb4
--- NOTE | 2025-01-19 12:43 | EDPHYS ---
Physician Documentation [facility] Name: Nelson Coronado Age: 69 yrs Sex: Male : 1955 Arrival Date: 01/19/2025 Time: 10:36 Bed 10 Private MD: ED Physician Mayur Lemus HPI: 01/19 12:39 This 69 yrs old Black Male presents to ER via Ambulatory with complaints of Fall Injury.sp3 12:39 61-year-old male with a history of heart disease, hypertension, prior GA, sp3 hyperlipidemia, currently on Xarelto now presents to the ED with mechanical fall early this morning while walking in the dark after tripping on something landing on his left side. Patient complains of pain over his left ribs. He denies any loss of consciousness, neck pain, chest pain, right-sided pain, abdominal pain, back pain, loss of motor function, sensory deficit, or any other signs or symptoms on ROS at this time.. Historical: - Allergies: 10:45 Tylenol-Codeine; ll1 - PMHx: 10:45 allergies; High Cholesterol; heart disease; Hypertension; chronic hip pain; Myocardial ll1 infarction; - Immunization history:: Adult Immunizations up to date. - Social history:: Smoking status: Patient reports the use of cigarette tobacco products, smokes one-half pack cigarettes per day. ROS: 12:40 Constitutional: Negative for fever, chills, and weight loss, Eyes: Negative for injury, sp3 pain, redness, and discharge, ENT: Negative for injury, pain, and discharge, Neck: Negative for injury, pain, and swelling, Cardiovascular: Negative for chest pain, palpitations, and edema, Respiratory: Negative for shortness of breath, cough, wheezing, and pleuritic chest pain, : Negative for injury, bleeding, discharge, and swelling, MS/Extremity: Negative for injury and deformity, Skin: Negative for injury, rash, and discoloration, Neuro: Negative for headache, weakness, numbness, tingling, and seizure, Psych: Negative for depression, anxiety, suicide ideation, homicidal ideation, and hallucinations, Allergy/Immunology: Negative for hives, rash, and allergies, Endocrine: Negative for neck swelling, polydipsia, polyuria, polyphagia, and marked weight changes, Hematologic/Lymphatic: Negative for swollen nodes, abnormal bleeding, and unusual bruising, 12:40 All other systems are negative, Exam: 12:41 Constitutional: This is a well developed, well nourished patient who is awake, alert, sp3 and in no acute distress. Head/Face: Normocephalic, atraumatic. Eyes: Pupils equal round and reactive to light, extra-ocular motions intact. Lids and lashes normal. Conjunctiva and sclera are non-icteric and not injected. Cornea within normal limits. Periorbital areas with no swelling, redness, or edema. Neck: Trachea midline, no thyromegaly or masses palpated, and no cervical lymphadenopathy. Supple, full range of motion without nuchal rigidity, or vertebral point tenderness. No Meningismus. Cardiovascular: Regular rate and rhythm with a normal S1 and S2. No gallops, murmurs, or rubs. Normal PMI, no JVD. No pulse deficits. Respiratory: Lungs have equal breath sounds bilaterally, clear to auscultation and percussion. No rales, rhonchi or wheezes noted. No increased work of breathing, no retractions or nasal flaring. Abdomen/GI: Soft, non-tender, with normal bowel sounds. No distension or tympany. No guarding or rebound. No evidence of tenderness throughout. Skin: Warm, dry with normal turgor. Normal color with no rashes, no lesions, and no evidence of cellulitis. MS/ Extremity: Pulses equal, no cyanosis. Neurovascular intact. Full, normal range of motion. Neuro: Awake and alert, GCS 15, oriented to person, place, time, and situation. Cranial nerves II-XII grossly intact. Motor strength 5/5 in all extremities. Sensory grossly intact. Cerebellar exam normal. Normal gait. Psych: Awake, alert, with orientation to person, place and time. Behavior, mood, and affect are within normal limits. 12:41 Chest/axilla: Patient with pain on the left side of the chest over his ribs. Breath sounds normal no clinical signs of pneumothorax. Abdomen is soft nontender nondistended with no peritoneal signs.. Vital Signs: 10:45 BP 162 / 84; Pulse 81; Resp 18; Temp 97.6; Pulse Ox 100% ; Weight 70.31 kg; Height 5 ll1 ft. 7 in. ; Pain 10/10; 10:45 Body Mass Index 24.28 (70.31 kg, 170.18 cm) ll1 10:45 Pain Scale: Adult ll1 MDM: 10:42 Medical Screening Exam initiated sp3 12:41 Data reviewed: vital signs, nurses notes, radiologic studies. ED course: Differential sp3 diagnosis includes left-sided rib contusion versus fracture. X-ray demonstrates no fracture or other abnormality. We will safely discharge home after p.o. [place] on tramadol.. 01/19 10:48 Order name: Ribs Left XRAY; Complete Time: 11:58 sp3 Administered Medications: 12:53 Drug: HYDROcodone-acetaminophen PO 5 mg-325 mg 2 tabs PO once {Note: Pt denies allergy jb4 to hydrocodone. States " I can take it just fine.".} Route: PO; 13:08 Follow up: Response: Medication administered at discharge. jb4 Disposition Summary: 01/19/25 12:43 Discharge Ordered Notes: Location: Home sp3 Condition: Stable sp3 Diagnosis - Left-sided rib contusion sp3 Followup: sp3 - With: Private Physician - When: Upon discharge from the Emergency Department - Reason: Continuance of care Discharge Instructions: - Discharge Summary Sheet sp3 - Rib Contusion sp3 Forms: - Medication Reconciliation Form sp3 - Antibiotic Education sp3 - Prescription Opioid Use sp3 - Patient Portal Instructions sp3 - Leadership Thank You Letter sp3 Prescriptions: - Tramadol 50 mg Oral Tablet - take 1 tablet ORAL route every 8 hours as needed; 12 tablet; Refills: 0, sp3 Product Selection Permitted Signatures: Dispatcher [employer] Otilio Tamayo RN RN jb4 Ady Portillo RN RN ll1 Mayur Lemus MD MD sp3
[2025-01-19] MEDS ORDERED: HYDROCODONE/APAP 5/325 MG TAB ONE (12:46)
[2025-01-19 15:27] VITALS: BP 162/84; TEMP 97.6; O2SAT 100
== END 2025-01-19 13:09 | disposition home or self-care (01) ==
LOC: ER 10:36
DX: S20.212A Contusion of left front wall of thorax, initial encounter (principal); W01.0XXA Fall on same level from slipping, tripping and stumbling without subsequent striking against object, initial encounter; F17.210 Nicotine dependence, cigarettes, uncomplicated; Z79.01 Long term (current) use of anticoagulants